=== PATIENT | female | born 1940 | race Caucasian/White ===

== ENCOUNTER → 2017-01-15 | Outpatient (CLI) | payer MEDICARE ==
--- NOTE | ~2017-01-15 | CT69 ---
[facility] A Service of [facility] & [facility] RADIOLOGY TEXT RESULTS PATIENT: LISA NESS LOCATION: [facility] : 40 UNIT #: [id number] AGE: [address]: Rigoberto Sorto MD SEX: F ORDER DR: [id number] [facility] [address] [place], [place] [address] [id number] O MR#: [id number] [facility] #: [id number] NAME: LISA NESS : 1940 SEX: F STUDY DATE/TIME: 01/15/2017 14:47 UNIT: [facility] ROOM: STUDY DESCRIPTION: CT Head W Contrast Attending Physician: Rigoberto Sorto M.D. Referring Physician: Rigoberto Sorto M.D. Ordering Physician: Rigoberto Sorto M.D. Primary Care Physician: Cristian [facility] MEDICAL IMAGING REPORT This report is preliminary unless electronic signature is present EXAM CT head with contrast Date: 01/15/2017 HISTORY 76-year-old female with dizziness, disequilibrium, bilateral carotid stenosis, coronary artery disease. Patient states symptoms present for 1 year. COMPARISON None. This CT exam was performed with one or more of the following radiation dose reduction techniques: automatic exposure control, adjustment of mA and/or kV according to patient size, and iterative reconstruction. FINDINGS Limited evaluation for intracranial hemorrhage due to presence of IV contrast but no gross intracranial hemorrhage is seen. No extraaxial fluid collections are identified. No enhancing mass lesion or abnormal leptomeningeal enhancement is identified. Ventricular configuration is within normal limits, without evidence of hydrocephalous. Reaves matter - white matter junction distinction is preserved without evidence of acute or evolving infarct. Mild periventricular white matter hypodensities are thought to represent changes of mild chronic microvascular disease. Mild microvascular disease changes are also thought to be present within the ondina on the left. There is dense calcification within the right vertebral artery near the skull base, and dense bilateral intracranial carotid artery calcifications are also present. No midline shift. Calvaria is within normal limits. Mastoid air cells and major paranasal sinuses appear clear. [facility] A Service of [facility] & [facility] RADIOLOGY TEXT RESULTS PATIENT: LISA NESS [id number] 40 UNIT #: [id number] AGE: [address]: Rigoberto oSrto MD SEX: F ORDER DR: Cerebellum appears grossly unremarkable, without atrophy. IMPRESSION 1. No acute findings. 2. Mild microvascular disease changes. 3. Dense intracranial carotid artery calcifications and right vertebral artery atherosclerotic calcification. Dictated by... Yamilex Parekh M.D. THIS IS AN ELECTRONICALLY VERIFIED REPORT Yamilex Parekh M.D. at 01/16/2017 2:10 PM HOA/marcelo TD: 01/15/2017 23:13 JOB #: [id number] MEDICAL IMAGING REPORT Page 1 of 1 COPY
--- NOTE | ~2017-01-15 | US37 ---
[facility] A Service of [facility] & [facility] RADIOLOGY TEXT RESULTS PATIENT: LISA NSES LOCATION: [facility] : 40 UNIT #: [id number] AGE: [address]: Rigoberto Sorto MD SEX: F ORDER DR: [id number] [place] [address] [place], [place] [address] [id number] O MR#: [id number] Acc #: [id number] NAME: LISA NESS : 1940 SEX: F STUDY DATE/TIME: 01/15/2017 13:28 UNIT: [facility] ROOM: STUDY DESCRIPTION: US Carotid W/Doppler Bilateral Attending Physician: Rigoberto Sorto M.D. Referring Physician: Rigoberto Sorto M.D. Ordering Physician: Rigoberto Sorto M.D. Primary Care Physician: Cristian [facility] MEDICAL IMAGING REPORT This report is preliminary unless electronic signature is present EXAM Bilateral carotid Doppler ultrasound DATE: 01/15/2017 HISTORY 76-year-old female with complaints of 1 episode of syncope 1 month ago, dizziness for the past year, heart disease with prior CABG, transient ischemic attack in 2013, hypertension and high cholesterol. COMPARISON None. PROCEDURE Real-time jimenez-scale, color Doppler and spectral Doppler imaging was performed of the bilateral cervical carotid arteries and vertebral arteries. Estimated stenosis was based on standard NASCET methodology. There is moderate mixed soft and calcific plaquing within the right carotid bulb, with [id number] plaquing demonstrated at the proximal right ICA and ECA. Peak systolic velocity in the right internal carotid artery midsegment is 138.8 cm/sec, indicating 50% to 69% luminal stenosis by NASCET criteria. Right external carotid artery is patent. Right vertebral artery is patent with antegrade flow. There is chmshubq-[id number]-qiagee mixed soft and calcific plaque within the left carotid bulb extending into the proximal left external and internal carotid arteries. Left internal carotid artery peak systolic velocity proximal segment is 270.2 cm/sec, suggesting greater than 70% luminal stenosis or high-grade stenosis by NASCET criteria. The left external STS. [facility] A Service of [facility] & [facility] RADIOLOGY TEXT RESULTS PATIENT: LISA NESS LOCATION: [facility] : 40 UNIT #: [id number] AGE: [address]: Rigoberto Sorto MD SEX: F ORDER DR: carotid artery is patent but does demonstrate elevated peak systolic velocity of 264.7 cm/sec suggesting severe stenosis, as well. Left vertebral artery is patent with antegrade flow. IMPRESSION 1. Severe stenosis (greater then 70%) in the left internal and external carotid arteries due to presence of advanced soft and calcific plaquing. 2. 50% to 69% luminal stenosis in the right internal carotid artery based on NASCET methodology. 3. Patency and antegrade flow of the bilateral vertebral arteries. Dictated by... Yamilex Parekh M.D. THIS IS AN ELECTRONICALLY VERIFIED REPORT Yamilex Parekh M.D. at 01/16/2017 2:10 PM HOA/marcelo TD: 01/15/2017 22:51 JOB #: [id number] MEDICAL IMAGING REPORT Page 1 of 1 COPY
[2017-01-15 16:16] LABS: POC - CREATININE 0.77 mg/dL (0.44-1.03); POC - GFR >60.0 mL/min (>60)
== END | disposition home or self-care (01) ==
LOC: CECH 12:19
PROVIDERS: Family Medicine
DX: I65.23 Occlusion and stenosis of bilateral carotid arteries (principal); I25.10 Atherosclerotic heart disease of native coronary artery without angina pectoris; I67.2 Cerebral atherosclerosis; I51.7 Cardiomegaly; I07.1 Rheumatic tricuspid insufficiency; I34.0 Nonrheumatic mitral (valve) insufficiency
CPT/HCPCS: 70460; 82565; 93306; 93880; Q9967